=== PATIENT | male | born 1945 | race Two or more races ===

== ENCOUNTER 2024-04-25 10:20 | Day surgery (SDC) | payer MEDICARE, MEDICAID, SELFPAY ==
--- NOTE | 2024-04-24 07:00 | EKG_ITS ---
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
[2024-04-24 07:47] VITALS: BMI 28.6
[2024-04-24 07:56] VITALS: BMI 28.6
[2024-04-24 08:53] LABS: Basophils % (Auto) 0 % (0-2.5); Eosinophils % (Auto) 0 % (0-10); Hematocrit 42.5 % (41.0-53.0); Hemoglobin 14.3 g/dL (13.5-16.0); Immature Granulocytes % (Auto) 0 % (0-0); Immature Granulocytes Auto 0.02 Thou/mm3 (0.00-0.00); Lymphocytes # (Auto) 1.3 Thou/mm3 (1.0-4.8); Lymphocytes % (Auto) 25 % (10-50); Mean Corpuscular HGB Conc 33.6 g/dl (31.0-37.0); Mean Corpuscular Hemoglobin 29.7 pg (25.0-35.0); Mean Corpuscular Volume 88 fL (80-100); Monocytes # (Auto) 0.3 Thou/mm3 (0.0-0.8); Monocytes % (Auto) 5 % (0-12); Neutrophils # (Auto) 3.5 Thou/mm3 (1.8-7.7); Neutrophils % (Auto) 69 % (37-80); Nucleated Red Blood Cell % 0 /100 WBC (0); Platelet Count 172 Thou/mm3 (140-440); RDW Standard Deviation 41.1 fL (35.1-43.9); Red Blood Count 4.82 Miln/mm3 (4.50-5.90); White Blood Count 5.2 Thou/mm3 (3.8-10.6)
[2024-04-24 09:18] LABS: Alanine Aminotransferase < 7 U/L (10-49); Albumin, Serum 4.4 gm/dL (3.4-4.8); Albumin/Globulin Ratio 1.6 (1.2-2.2); Alkaline Phosphatase 67 U/L (46-116); Anion Gap 8 (7-16); Aspartate Amino Transferase 13 U/L (0-34); BUN/Creatinine Ratio 18 Ratio (12-20); Bilirubin,Total 0.9 mg/dL (0.3-1.2); Blood Urea Nitrogen 21 mg/dL (9-23); Calcium 9.3 mg/dL (8.3-10.6); Calcium (Corrected) 9.3 mg/dL (8.5-10.1); Chloride 103 mMol/L (98-107); Creatinine (Component) 1.2 mg/dL (0.6-1.3); Estimated Creatinine Clearance 57.5 mL/min (>60); Globulin 2.7 gm/dL (2.3-3.5); Glucose 123 mg/dL (74-106); Osmolality,Calculated 283 (275-295); Potassium 4.4 mMol/L (3.4-5.1); Sodium 140 mMol/L (136-145); Total Protein 7.1 gm/dL (5.7-8.2); eGFR > 60 See Note
--- NOTE | 2024-04-24 14:24 | SUR.PREOP ---
Pt's daughter Kenisha notified to bring pt tomorrow at 1130 for surgery
[2024-04-25] VITALS (10 sets, daily range): BP systolic 131–173; BP diastolic 64–89; PULSE 50–60; RESP 12–19; TEMP 36.2–36.6; O2SAT 94–99; BMI 27.8
[2024-04-25] MEDS: RINGERS LACTATED 1000 ML 1,000 ML 20 ML IV (11:12)
--- NOTE | 2024-04-25 13:57 | ESOP_ITS ---
Date of Procedure 04/25/24 Pre Op Diagnosis Incarcerated and recurrent right inguinal hernia Post Op Diagnosis Incarcerated recurrent right inguinal hernia Procedure Repair of incarcerated and recurrent right inguinal hernia with mesh Findings Significant scarring from previous mesh placement. Patient was noted to have direct right inguinal hernia Procedure Description Patient brought into the operating room in supine position. After administration of general endotracheal anesthesia, patient's right groin was shaved, prepped and draped in standard surgical manner. The right inguinal crease was anesthetized with half percent Marcaine. An approximately 8 cm incision was made over his previous incision and dissection was carried to subcutaneous tissue. Patient was noted to have extensive scarring from previous operation. The Carmen's fascia was divided. Patient was noted to have significant scarring of the mesh into the external oblique aponeurosis. The previously placed mesh was excised and from the external oblique aponeurosis. The superior and inferior edges of the external oblique aponeurosis was identified and was cleared from surrounding tissue. The hernia sac and the spermatic cord structures were from the posterior aspect of the external oblique aponeurosis at the level of pubic tubercle. The hernia sac was then meticulously dissected off the spermatic cord structures at the level of internal ring and was reduced. Patient was noted to have direct right inguinal hernia. The defect was closed with interrupted [id number] sutures using 0 Vicryl. The floor of inguinal canal was then reconstructed with ultra Pro proceed mesh. The mesh was secured with running 2-0 Prolene suture. The mesh secured medially to the pubic tubercle, superiorly into the conjoin tendon, inferiorly and to the shelving edge of inguinal ligament, the mesh was placed around the cord structures and tacked under the external oblique aponeurosis laterally. The area was copiously and thoroughly washed and irrigated, all the fluids were suctioned and the suction fluid returned clear. Hemostasis was adequate and satisfactory. External oblique aponeurosis was closed with running 2-0 Vicryl suture, and Carmen's fascia was closed with interrupted suture using 3-0 Vicryl. The incision was closed with 4-0 Monocryl in subcutaneous fashion. Instruments, needles and sponge counts were reported to be correct ?2. Patient tolerated the procedure well. He was extubated, breathing spontaneously and without difficulty and was transferred to postanesthesia care in stable condition. Anesthesia GETA and local Pathology / specimen Other (Old mesh from previous operation) Estimated Blood Loss 10 Condition Stable Disposition PACU Surgeon Edgar Nina MD Surgical Staff Operation Date: 04/25/24 14:45 Case Staff INTENSIVE CARE UNIT NURSE: Bryan Marquez RN First Assistant: Rober Medellin
--- NOTE | 2024-04-25 14:16 | SUR.PHASEI ---
1416: Pt. AAOx4, vitals stable, breathing unlabored, no complaint of pain or nausea, dressing to lower ABD CDI, no active bleed noted, report received from Mahendra NORRIS and Niranjan SANTANA.
[2024-04-25] MEDS: ONDANSETRON INJ 2 MG/ML INJ 2 ML 4 MG IV (14:40)
[2024-04-25] MEDS: METOCLOPRAMIDE INJ 5 MG/ML VIAL 2 ML 10 MG IVP (15:22)
--- NOTE | 2024-04-25 15:40 | SUR.PHASEII ---
1540: Pt. AAOx4, vitals stable, breathing unlabored, no complaint of pain, pt. had slight nausea, gave pt. some ice chips and he stated his nausea was better, dressing to ABD CDI, no active bleed noted, pt. ambulated to wheelchair with steady gait and minimal assist, no complications, gave discharge instructions to the pt. 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 Pt. left with all personal belongings.
== END 2024-04-25 15:40 | disposition home or self-care (01) ==
PROVIDERS: Anesthesiology; PCP Family Medicine; Referring Provider Surgery; Visit Provider Surgery
PROC: (CPT 49521; principal; 2024-04-25 14:30)
DX: K40.31 Unilateral inguinal hernia, with obstruction, without gangrene, recurrent (principal); Z01.810 Encounter for preprocedural cardiovascular examination
CPT/HCPCS: 49521; 36415; 80053; 85025; 93005; A4217; A4649; C1781; J0131; J0690; J2250; J2405; J2704; J2765; J3010; J3490; J7120; J1596